=== PATIENT | male | born 1955 | race Caucasian/White ===

== ENCOUNTER 2025-09-07 18:06 | Emergency (ER) | payer MEDICARE, SELFPAY ==
--- NOTE | 2025-09-07 18:08 | ED_ITS ---
<Statement entered by Zulay Arriola DO - 09/07/25 19:56> I was consulted by the HUA, and we discussed the complexity of problems being addressed. I approve the treatment and management plan for this patient's care in the emergency department, thus performing a substantial portion of the medical decision making. Zulay Arriola DO Discharge Plan Disposition Patient Disposition: Home, Self-Care Condition: Good Prescriptions Prescriptions: No Action atorvastatin 40 mg tablet 40 mg PO DAILY albuterol sulfate 90 mcg/actuation HFA aerosol inhaler 2 inh inhalation QID PRN metronidazole 0.75 % gel topical doxycycline hyclate 20 mg tablet 20 mg PO DAILY fluticasone propionate [Allergy Relief (fluticasone)] 50 mcg/actuation spray,suspension 1 spray intranasal BID PRN Rx Instructions: administer into each nostril Zyrtec 10 mg capsule 10 mg PO DAILY PRN prednisone 10 mg tablet 10 mg PO DIRECTED Qty: 32 0RF Rx Instructions: see taper instructions: 4 tabs po qam x 5 days; 3 tabs po qam x 2 days; 2 tabs po qam x 2 days; 1 tab po qam x 2 days; then stop Referrals Follow up/Referrals: Yeyo Chisholm MD [Primary Care Provider, Medical] - See instructions Activity Restrictions/Add. Instructions Additional Instructions/Restrictions: You were evaluated on an emergency basis. It is very important that you follow- up with your primary care provider and any specialist who we discussed within the next 2 days in order to better assess your health more comprehensively. For example, incidental findings on imaging or laboratory results that were performed today may be discovered, which do not require immediate medical care, but may impact your health in the future. If your symptoms worsen or persist, please return to the emergency department immediately for reassessment. Take all medications as prescribed. In queue for allowing me to participate in your health care, and I hope you feel better soon. Clinical Impressions Clinical Impression: Foreign body in esophagus Instructions Patient Instructions: DI for Foreign Body, Swallowed in Adults Print Language Print Language: Yi Discharge ED Provider: Zulay Arriola General Adult HPI General Chief complaint: Skin/Abscess/Foreign Body Stated complaint: vomiting Time Seen by Provider: 09/07/25 18:08 History of Present Illness HPI narrative: 70-year-old male presents the emergency department with complaints of sudden onset of feeling like he had something stuck in his chest after eating chicken. He reports he does have a history of a hiatal hernia however reports when he was last scoped a year ago they reported the hernia was small and did not need any surgical interventions. Patient reports he has had a food bolus in the past. Patient states he has had repeated gagging and vomiting since this sensation started. Related Data Home Medications ?Medication ?Instructions ?Recorded ?Confirmed albuterol sulfate 90 mcg/actuation 2 inh inhalation QI D PRN 05/17/24 05/17/25 aerosol inhaler atorvastatin 40 mg tablet 40 mg PO DAILY 05/17/2404/22 cetirizine 10 mg capsule (Zyrtec) 10 mg PO DAILY PRN 0 05/17/24 05/17/25 doxycycline hyclate 20 mg tablet 20 mg PO DAILY 05/17/25 fluticasone propionate 50 1 spray intranasal BID PRN 0 05/17/24 05/17/25 mcg/actuation nasal spray,suspension (Allergy Relief (fluticasone)) metronidazole 0.75 % topical gel topical 05/17/2404/22 Previous Rx's ?Medication ?Instructions ?Recorded prednisone 10 mg tablet 10 mg PO DIRECTED #32 tab s 05/17/25 Allergies Allergy/AdvReac Type Severity Reaction Status Date / Time dexamethasone (From Decadron) AdvReac Other Verified 05/17/25 14:10 [facility] Disclaimer: The information contained in this section may have been updated after the patient was seen, as this information can be updated by other users. Social History Smoking Status: Never smoker alcohol intake: never current occupational status: employed Travel in the last 8 weeks?: Inside the [place] Have you lived/traveled outside US in past 30 days?: No Contact w/someone who lives/traveled outside US past 30 days?: No Exposure to someone with infectious disease in past 14 days?: No Do you have a fever (greater than 100.4 F or 38 C)?: No Have you tested positive for COVID-19?: No Exposed to someone with COVID-19 in past 14 days?: No Do you have a sore throat?: No Do you have a cough?: No Do you have any weakness?: No Do you have any diarrhea?: No Are you experiencing any unusual bleeding?: No Do you have any muscle aches/pain?: No Do you have any abdominal pain?: No Are you experiencing loss of taste or smell?: No Other Medical History Have you received the Pneumonia Vaccine: No ROS Obtained: Yes other Gastrointestinal Gastrointestingal: Reports vomiting and other (Foreign body sensation) Physical Exam Narrative Physical exam: General: Awake, aware, in no acute distress HEENT: Normocephalic, no evidence of trauma CV: RRR, no murmurs, rubs, or gallops Pulm: CTA bilaterally with no rhonchi, rales, wheezes ABD: Nontender, no swelling, guarding, or rebound tenderness Psych, appropriate mood and affect General General appearance: alert Respiratory Respiratory exam: Present normal lung sounds bilaterally Cardiovascular Cardiovascular exam: Present regular rate Neurological Exam Neurological exam: Present alert Medical Decision Making Medical Records Screening: Per USPSTF and CDC recommendations, given the prevalence of disease in our region, it is our hospital?s policy to screen for HIV and viral Hepatitis for all patients aged 18 and over and those with ongoing risk factors. Rell Inquiry Pt receiving controlled substance: No Vital Signs: 09/07/25 18:15 Temperature 98.5 F Temperature Source Temporal Artery Scan Pulse Rate [Right] 76 Respiratory Rate 18 Blood Pressure [Right Arm] 164/124 H Blood Pressure Mean [Right Arm] 137 Blood Pressure Source [Right Arm] Automatic Cuff Blood Pressure Position [Right Arm] Sitting 02 Sat by Pulse Oximetry 100 Oxygen Delivery Method Room Air Orders (Tests/Meds): ED MEDICATIONS Discontinued Medications Generic Name Dose Route Start Last Admin Trade Name Abimael PRN Reason Stop Dose Admin Ondansetron HCl 4 mg 09/07/25 18:24 09/07/25 18:28 Ondansetron 4mg/2ml Vial IV 09/07/25 18:25 4 mg ONCE ONE Administration Medical Decision Narrative: Initial impression of presenting illness: 70-year-old male presents the emergency department with complaints of a foreign body sensation after eating chicken for dinner tonight. Patient reports he suddenly had a pain in his epigastric/ lower chest area. He reports that he has had this episode in the past with a food bolus. He states he does have a history of hiatal hernia however when he had scope done last year he was told by GI that it was small and did not need any surgical intervention. Patient states he has had several episodes of vomiting since feeling this sensation. He states he is able to swallow secretions but still feels that something is stuck Differential diagnosis includes but is not limited to: Food bolus, gastritis, esophagitis, hiatal hernia Patient arrives hemodynamically stable, afebrile, without respiratory distress with vital signs interpreted by myself. Initial physical exam unremarkable. Patient is speaking in clear complete sentences. No evidence of respiratory distress. Abdomen soft nontender with normoactive bowel sounds. Patient did have an episode of gagging and spitting up phlegm while was in the room. As I had patient set up so I did listen to breath sounds he states that he felt something move within the area that he is complaining of discomfort and thinks that the food bolus might of passed. Initial diagnostic plan: Zofran for nausea, fluid challenge with a carbonated beverage Interventions in the ED: Patient was given Zofran for nausea. He was also given a carbonated beverage for fluid challenge. Patient was made aware of the results and the findings, upon reevaluation patient has remained stable throughout stay, symptoms have resolved. Upon reevaluation patient has been able to tolerate his drink without difficulty. Patient states he is feeling much better and is no longer having a foreign body sensation. Disposition: Advised patient that it appears his food bolus has passed without difficulty. I recommended he speak with his primary care provider as well as his GI provider at the [facility] for further recommendations or evaluations for this food bolus. Instructed him to return to the emergency department any new or worsening symptoms. Patient is agreeable to plan of care. Patient made aware of findings and had a detailed discussion with symptomatic care and return precautions, patient voiced understanding. Critical Care Critical Care Time Critical Care Time: No
[2025-09-07 18:15] VITALS: BP 164/124; PULSE 76; RESP 18; TEMP 36.9; O2SAT 100; BMI 33.5
--- OUTSIDE RECORDS SUMMARY | 2025-09-07 18:20 | XMS_ITS ---
Author Organization [facility] Address [address] [place] [address] Care Team Providers Care Mixer Machine Feeder Name Role Phone Marcio Jiménez MD Primary Care Provider [phone] Romelia Avalos LPN Unavailable Unavailabl e Annual Wellness Status:Active (Active) Program category:Care Coordination Start date:09/04/2025 Enrollment date:09/04/2025 Enrollment reason:Identified using claims or encounter data Case Team Name Relationship Phone Romelia Avalos LPN(Responsible Staff) Licensed Practical Nurse Continued Care and Services Coordination
--- OUTSIDE RECORDS SUMMARY | 2025-09-07 18:20 | XMS_ITS | Encounter Summary ---
Author Organization Healthcare Address [address] [place] [address] Care Team Providers Care Cloth Bin Packer Name Role Phone Marcio Jiménez MD Primary Care Provider [phone] Romelia Avalos LPN Unavailable Unavailabl e Reason for Visit * Reason Comments AWV Encounter Details Date Type Department Care Team (Late st Contact Info) Description 09/04/2025 Patient Outreach POP[facility] [address], [address] [place] [address] Romelia Avalos, ALISHA VALUE-BASED TRANSFORMATION PROGRAM None AWV Social History Tobacco Use Types Packs/Day Years Used Date Smoking Tobacco: Never Smokeless Tobacco: Never Alcohol Use Standard Drinks/Week Comments Yes 0 (1 standard drink = 0.6 oz pure alcohol) Alcoholic Drinks/day: Never Drank Alcohol AUDIT-C Answer Date Recorded Q1: How often do you have a drink containing alcohol? Never 08/08/2024 Q2: How many drinks containi ng alcohol do you have on a typical day when you are drinking? Patient does not drink Q3: How often do you have si x or more drinks on one occasion? Never 08/08/2024 PHQ-2 Answer Date Recorded Patient Health Questionnaire-2 Score 2 08/15/2024 PHQ-9 Answer Date Recorded Patient Health Questionnaire-9 Score 3 08/15/2024 Humiliation, Afraid, Rape, and Kick questionnair e Answer Date Recorded Within the last year, have y ou been afraid of your partner or ex-partner? No 09/04/2025 Within the last year, have y ou been humiliated or emotionally abused in other ways by your partner or ex-partner? No Within the last year, have y ou been kicked, hit, slapped, or otherwise physically hurt by your partner or ex-partner? No 09/04/2025 Within the last year, have y ou been raped or forced to have any kind of sexual activity by your partner or ex-partner? No 09/04/2025 Social Connection and Isolation Panel Answer Date Recorded In a typical week, how many times do you talk on the phone with family, friends, or neighbors? More than three times a week 09/04/2025 How often do you get togethe r with friends or relatives? More than three times a week 09/04/2025 How often do you attend [facility] or confucianist services? 1 to 4 times per year 09/04/2025 Do you belong to any clubs o r organizations such as latter day groups, unions, fraternal or athletic groups, or school groups? Yes 09/04/2025 How often do you attend meet ings of the clubs or organizations you belong to? More than 4 times per year 09/04/2025 Are you , , di vorced, , never , or living with a partner? Never 09/04/2025 AUDIT-C Answer Date Recorded Q1: How often do you have a drink containing alc ohol? Monthly or less 09/04/2025 Q2: How many drinks containi ng alcohol do you have on a typical day when you are drinking? 1 or 2 09/04/2025 Q3: How often do you have si x or more drinks on one occasion? Never 09/04/2025 [facility] Occupational Stress Questionnaire Answer Date Recorded Do you feel stress - tense, restless, nervous, or anxious, or unable to sleep at night because your mind is troubled all the time - these days? Not at all 09/04/2025 Exercise Vital Sign Answer Date Recorde d On average, how many days pe r week do you engage in moderate to strenuous exercise (like a brisk walk)? 0 days 09/04/2025 On average, how many minutes do you engage in exercise at this level? 0 min 09/04/2025 Hunger Vital Sign Answer Date Recorded Within the past 12 months, y ou worried that your food would run out before you got the money to buy more. Never true 09/04/20 25 Within the past 12 months, t he food you bought just didn't last and you didn't have money to get more. Never true 09/04/2025 PRAPARE - Transportation Answer Date Re corded In the past 12 months, has l ack of transportation kept you from medical appointments or from getting medications? No 08/21 In the past 12 months, has l ack of transportation kept you from meetings, work, or from getting things needed for daily living? No 09/04/2025 Housing Stability Vital Sign Answer Andre e Recorded In the last 12 months, was t here a time when you were not able to pay the mortgage or rent on time? No 09/04/2025 In the past 12 months, how m any times have you moved where you were living? 0 09/04/2025 At any time in the past 12 m [facility], were you homeless or living in a intermediate (including now)? No 09/04/2025 [facility] Utilities Answer Date Recorded In the past 12 months has th e electric, gas, oil, or water company threatened to shut off services in your home? No 09/04/2025 PHQ-2A Answer Date Recorded Patient Health Questionnaire-2 Score 0 08/10/2023 Sex and Gender Information Value Date Recorded Sex Assigned at Male 03/28/2023 8:15 AM EDT Legal Sex Male 7:56 PM EDT Gender Identity Male 03/28/2023 8:15 AM EDT Sexual Orientation Not on file documented as of this encounter Functional Status * AUDIT-C Score Answer Date of Assessment Author 1 09/04/2025 2:54 PM Jeanne Gallardo LPN * Question Answer Date of Assessment Author Q1: How often do you have a drink containing alcohol? Monthly or less 09/04/2025 2:54 PM Romelia Gallardo LPN Q2: How many drinks containing alcohol do you have on a typical day when you are drinking? 1 or 2 09/04/2025 2:54 PM Av Gallardo LPN Q3: How often do you have six or more drinks on one occasion? Never 09/04/2025 2:54 PM EST Romelia Avalos LPN documented as of this encounter Miscellaneous Notes * Progress Notes - Romelia Avalos LPN - 09/04/2025 2:42 PM EST 09/04/2025 AWV Call # 1 Patient Reached: Y HRA Completed: Y 6-Item Cognitive Screen Completed: Y Care Gaps Discussed: Annual Wellness Visit (AWV) Outcome: Discussed the importance of an annual wellness visit, reviewed medications, updated the SDOH assessment, updated learning needs, updated STEADI fall risk, and reminded the patient of the date and time of the upcoming appointment. Social Drivers of Health with Concerns Physical Activity: Inactive (09/04/2025) Exercise Vital Sign Days of Exercise per Week: 0 days Minutes of Exercise per Session: 0 min Financial Resource Strain: Not on file documented in this encounter Plan of Treatment Upcoming Encounters Date Type Department Care Team (Late st Contact Info) Description 09/11/2025 2:50 PM EST Office Visit [facility] [address], [address] [place] [address] Marcio Jiménez MD [address] [place] [address] documented as of this encounter Visit Diagnoses Not on filedocumented in this encounter Additional Health Concerns Assessment Noted Time PHQ-9 Depression Total Score: 3 08/15/20 24 2:16 PM EST A fall risk assessment has been complete d for the patient 09/04/2025 2:54 PM EST A Body Mass Index follow-up plan has been documented for the patient 10/17/2024 1:38 PM EST documented as of this encounter Care Teams Cloth Bin Packer Relationship Specialty Start Date End Date Marcio Jiménez MD [address] [place] [address] PCP - General 02/01/21 Planck, Romelia N, [employer] VALUE-BASED TRANSFORMATION PROGRAM None Licensed Practical Nurse 09/04/25 documented as of this encounter
--- OUTSIDE RECORDS SUMMARY | 2025-09-07 18:20 | XMS_ITS | Encounter Summary ---
Author Organization Healthcare Address [address] [place] [address] Care Team Providers Care Transaction Advisory Services Manager Name Role Phone Marcio Jiménez MD Primary Care Provider [phone] Lizzie Smith VARNISH MIXER Unavailable Unavailabl e Romelia Avalos VARNISH MIXER Unavailable Unavailabl e Encounter Details Date Type Department Care Team (Latest Contact Info) Description 08/24/2024 Lab Requisition [facility] [address] [place] [address] Varun Wilkes MD [address] [place] [address] Encounter for screening for upper gastrointestinal disorder Social History Tobacco Use Types Packs/Day Years Used Date Smoking Tobacco: Never Smokeless Tobacco: Never Alcohol Use Standard Drinks/Week Comments No 0 (1 standard drink = 0.6 oz pure alcohol) Alcoholic Drinks/day: Never Drank Alcohol Humiliation, Afraid, Rape, and Kick questionnair e Answer Date Recorded Within the last year, have y ou been afraid of your partner or ex-partner? No 08/08/2024 Within the last year, have y ou been humiliated or emotionally abused in other ways by your partner or ex-partner? No Within the last year, have y ou been kicked, hit, slapped, or otherwise physically hurt by your partner or ex-partner? No 08/08/2024 Within the last year, have y ou been raped or forced to have any kind of sexual activity by your partner or ex-partner? No 08/08/2024 AUDIT-C Answer Date Recorded Q1: How often [...] Recorded Patient Health Questionnaire-2 Score 2 08/15/2024 Exercise Vital Sign Answer Date Recorde d On average, how many days pe r week do you engage in moderate to strenuous exercise (like a brisk walk)? 0 days 08/08/2024 On average, how many minutes do you engage in exercise at this level? 0 min 08/08/2024 Hunger Vital Sign Answer Date Recorded Within the past 12 months, y ou worried that your food would run out before you got the money to buy more. Never true 08/08/20 24 Within the past 12 months, t he food you bought just didn't last and you didn't have money to get more. Never true 08/08/2024 PRAPARE - Transportation Answer Date Re corded In the past 12 months, has l ack of transportation kept you from medical appointments or from getting medications? No 07/22 In the past 12 months, has l ack of transportation kept you from meetings, work, or from getting things needed for daily living? No 08/08/2024 PHQ-9 Answer Date Recorded Patient Health Questionnaire-9 Score 3 08/15/2024 Housing Stability Vital Sign Answer Andre e Recorded In the last 12 months, was t here a time when you were not able to pay the mortgage or rent on time? No 08/08/2024 In the past 12 months, how m any times have you moved where you were living? 1 08/08/2024 At any time in the past 12 m [facility], were you homeless or living in a long-term (including now)? No 08/08/2024 Utilities Answer Date Recorded In the past 12 months has th e electric, gas, oil, or water company threatened to shut off services in your home? No 08/08/2024 PHQ-2A Answer Date Recorded Patient Health Questionnaire-2 Score 0 08/10/2023 Sex and Gender Information Value Date Recorded Sex Assigned at Male 03/28/2023 8:15 AM EDT Legal Sex Male 7:56 PM EDT Gender Identity Male 03/28/2023 8:15 AM EDT Sexual Orientation Not on file documented as of this encounter Plan of Treatment Upcoming Encounters Date Type Department Care Team (Late st Contact Info) Description 09/11/2025 2:50 PM EST Office Visit [facility] [address] [place] [address] Marcio Jiménez MD [address] [place] [address] documented as of this encounter Procedures Procedure Name Priority Date/Time Associated Diagnosis Comments SURGICAL PATHOLOGY EXAM Routine 08/23/2024 Encounter for screening for upper gastrointestinal disorder documented in this encounter Results * Surgical Pathology Exam (08/23/2024) Case Report Surgical Pathology Case: [id number] Authorizing Provider: Varun Wilkes MD Collected: 08/23/2024 Ordering Location: [facility] Received: 08/24/2024 1032 Pathologist: Jered Colunga MD Specimens: A) - Gastric, gastric biopsy B) - Esophagus, distal esophagus biopsy C) - Esophagus, mid esophagus biopsy 08/30/2024 5:47 PM EST [facility] Final Diagnosis A. STOMACH, BIOPSY: - REACTIVE GASTROPATHIC CHANGES - NO EVIDENCE OF HELICOBACTER-LIKE ORGANISMS ON ROUTINE STAIN B. ESOPHAGUS, DISTAL, BIOPSY: - SQUAMOUS MUCOSA WITH FOCAL MILD EOSINOPHILIA (UP TO 20 EOS/HPF) (SEE COMMENT) - NO EVIDENCE OF SIGNIFICANT HYPERPLASIA C. ESOPHAGUS, MID, BIOPSY: - SQUAMOUS MUCOSA WITH NO PATHOLOGIC ABNORMALITY 08/30/2024 5:47 PM EST [facility] at 1747 EST Comment Though not entirely specific, the distribution and quality of the esophageal histologic findings in this series are more in keeping with reflux esophagitis, and are not overly suggestive of an allergic etiology. 08/30/2024 5:47 PM EST [facility] Clinical Information Encounter for screening for upper gastrointestinal disorder Dysphagia 08/30/2024 5:47 PM EST [facility] Gross Description A. GASTRIC BIOPSY Received in formalin labeled g astric biopsy are 6 kapadia-brown soft tissues measuring 0.2-0.3 cm. Entirely submitted in cassette A1. Cold Time: 0 Hollie T Dutton B. DISTAL ESOPHAGUS BIOPSY Received in formalin labeled d istal esophagus biopsy are 3 white-kapadia soft tissues measuring 0.2 cm each. Entirely submitted in cassette B1. Cold Time: 0 Hollie T Dutton C. MID ESOPHAGUS BIOPSY Received in formalin labeled m id esophagus biopsy are 3 white-kapadia soft tissues measuring 0.1-0.2 cm. Entirely submitted in cassette C1. Cold Time: 0 Hollie T Dutton 08/30/2024 5:47 PM EST [facility] Note: A resident was involved in the service. I attest I examined the relevant preparations for the specimens and confirmed the diagnosis or interpretation. 08/30/2024 5:47 PM EST [facility] Tissue Esophageal structure / Unknown 08/23/2024 08/24/2024 10:32 AM EST Tissue specimen (specimen) Esophageal structure / Unknown 08/23/2024 08/24/2024 10:32 AM EST Tissue specimen (specimen) Esophageal structure / Unknown 08/23/2024 08/24/2024 10:32 AM EST us Varun Wilkes MD LAB PATHOLOGY ORDERABLES Final Result Performing Organization Address City/State/[facility] Co de Phone Number [facility] [address] [place] [address] documented in this encounter Visit Diagnoses Diagnosis Encounter for screening for upper gastrointestinal disorder Mild intermittent asthma without complication documented in this encounter Additional Health Concerns Assessment Noted Time PHQ-9 Depression Total Score: 3 08/15/20 2:16 PM EST A fall risk assessment has been complete d for the patient 08/15/2024 2:16 PM EST A Body Mass Index follow-up plan has been documented for the patient 08/15/2024 6:10 PM EST documented as of this encounter Care Teams Transaction Advisory Services Manager Relationship Specialty Start Date End Date Marcio Jiménez MD [address] [facility] [address] [place] [address] PCP - General 02/01/21 Lizzie Smith LPN [employer] [address] None Licensed Practical Nurse 08/08/24 02/04/25 Romelia Avalos LPN VALUE-BASED TRANSFORMATION PROGRAM None Licensed Practical Nurse 09/04/25 documented as of this encounter
--- OUTSIDE RECORDS SUMMARY | 2025-09-07 18:20 | XMS_ITS | Clinical Summary ---
Author Organization Healthcare Address [address] [place] [address] Care Team Providers Care Title Coordinator Name Role Phone Marcio Jiménez MD Primary Care Provider [phone] Romelia Avalos ENGINEERING DOCUMENTATION SPECIALIST Unavailable Unavailabl e Allergies Active Allergy Reactions Criticality Noted Date Comments Dexamethasone Other - please docum ent in the comment field Low 06/06/2013 Feeling very excited and made eyes cold Medications * This document contains information received from the source organization and may not represent a complete record from that organization. ketoconazole (NIZOral) 2 % shampoo Apply 1 Application topically 2 (two) times a week. 03/21/20 21 Active metroNIDAZOLE (Metrocream) 0.75 % cream Apply 1 Application topically every night. 03/23/20 23 Active doxycycline (Periostat) 20 MG tablet 1 tablet (20 mg) 2 (two) times a day. For rosacea 03/21/20 23 Active melatonin 3 MG tablet Take 1 tablet (3 mg) by mouth every night. Active fluticasone (Flonase) 50 MCG/ACT nasal sprayIndications:A llergic rhinitis, unspecified seasonality, unspecified trigger Administer 2 sprays into each nostril 1 (one) time each day. 48 g 3 08/15/20 24 Active cetirizine (ZyrTEC) 10 MG tabletIndications: Allergic rhinitis, unspecified seasonality, unspecified trigger Take 1 tablet (10 mg) by mouth every night. 90 tablet 3 08/15/20 24 Active atorvastatin (Lipitor) 40 MG tabletIndications: Hyperlipidemia, unspecified hyperlipidemia type Take 1 tablet (40 mg) by mouth 1 (one) time each day. 90 tablet 3 08/15/20 Active ibuprofen 200 MG tablet Take 1 tablet (200 mg) by mouth every 6 (six) hours if needed for mild pain. Active albuterol 108 (90 Base) MCG/ACT inhalerIndications :Mild intermittent asthma without complication Inhale 2 puffs 4 times a day as needed for wheezing or shortness of breath. 18 g 2 07/03/20 Active Active Problems Problem Noted Date Diagnosed Date Esophageal dysphagia 09/13/2024 Overview (09/13/2024): Began in late 2023. Aug 2024 - EGD showed gastritis as likely cause. No rings, minimal eosinophils on biopsies. Assessment & Plan (10/17/2024 1:44 PM EST): Stable. Not bohtersome enough to take PPI daily. Will manage with eating habits (eat lora slowly and chew). Can try PPI without visit if worsens. Rosacea 08/15/2024 Overview (08/15/2024): Sees dermatology. On daily doxy, metrogel. History of inguinal hernia 04/06/2023 Overview (08/10/2023): Working in yard in February 2023. [place] swelling develop afterwards. Went to ER in early March and diagnosed with hernia, was referred to surgery. Is wearing and using a hernia belt which helps keeping swelling from and happening. Apr 2023 - had laparoscopic repair with mesh Assessment & Plan (08/10/2023 6:52 PM EST): Occasional pains but improving overall. Assessment & Plan (04/22/2023 5:58 PM EDT): Discussed and reviewed options. Advised on what to ask surgeon. Seeing surgery next week. History of prediabetes 07/30/2022 Overview (08/15/2024): A1c was 5.7 in 2015 went down then back to prediabetes in 2021. A1c 5.3% in January 2022. A1c 5.0% in Jul 2023. Assessment & Plan (08/15/2024 6:03 PM EST): Will check with labs. Assessment & Plan (08/10/2023 6:51 PM EST): Will check A1c with labs. Assessment & Plan (07/30/2022 6:53 PM EST): Improved. Healthcare maintenance 06/10/2021 Overview (09/12/2024): Retired. Unmarried. No children. CRC - Aug 2024 cologuard negative; repeat in 3 years AAA - not indicated Lung cancer - not indicated PSA - <1 in 2023 ASCVD - on statin Has a will and healthcare POA (brother first, then niece in [facility]) Assessment & Plan (08/15/2024 6:04 PM EST): UTD on eye doctor and dentist. Will pursue cologuard after discussing options. Assessment & Plan (08/10/2023 3:22 PM EST): Doing FOBT through his insurance company. Assessment & Plan (04/22/2023 5:59 PM EDT): Reviewed preventive services and when they are due. Will do wellness visit with labs in July. External hemorrhoids 06/10/2021 Overview (10/17/2024): Prior issues. Obesity 06/04/2020 Assessment & Plan (07/30/2022 6:54 PM EST): Obesity is unchanged. Discussed the patient's BMI. The BMI is above average. The patient received The patient received dietary education because they have an above normal BMI. and The patient received exercise education because they have an above normal BMI. because they have an above normal BMI.. Diet interventions: moderate (500 kCal/d) deficit diet. Regular aerobic exercise program discussed. Primary osteoarthritis of knee 03/23/2019 Overview (08/15/2024): 2019 - L knee arthritis noted on x-ray. Intertrigo 02/03/2019 Asthma 05/28/2017 Overview (06/10/2021): Had as child, has not used inhalers or had issues for 30+ years. Had an episode in 2017, went to urgent care and was diagnosed with asthma. Palpitations 06/11/2016 Overview (06/10/2021): 30 years ago had what sounded like a halter monitor, was told that everything was normal. Was told he has a heart murmur as a teenager. No associated pain or discomfort. He saw a telephone lines repairer in 2015 told him he had benign PACs. Hyperlipidemia 08/24/2013 Overview (06/10/2021): Taking statin with no issues. Lab results from employee screening 2018 (121 / 39 / 56 / 133). Assessment & Plan (08/15/2024 6:03 PM EST): Lipid abnormalities are will check with labs . Pharmacotherapy as ordered. Lipids will be reassessed in 1 year. Allergic rhinitis 06/06/2013 Overview (08/10/2023): Uses flonase and antihistamine. Adds saline nasal spray when gets irritated. Assessment & Plan (08/15/2024 6:02 PM EST): No current infection. Discussed adding large volume nasal rinses when symptoms flare. Assessment & Plan (08/10/2023 6:50 PM EST): No sinus infection today, likely rhinitis flare. Encounters Date Type Department Care Team Description 09/04/2025 Patient Outreach [facility] [address], [address] [place] [address] Romelia Avalos LPN AWV 06/29/2025 [facility] [address], [address] [place] [address] Marcio Jiménez MD Mild intermittent asthma without complication 06/14/2025 Travel 06/13/2025 6:00 PM EDT Immunization [facility] Pharmacist Care Team [address] [place] [address] Need for COVID-19 vaccine (Primary Dx); Flu vaccine need from Last 3 Months Immunizations Immunization Administration Dates Next Due Hep A, Adult 02/03/2019,08/03/2018 Influenza Vaccine, Quadrival ent, Adjuvanted 06/10/2021 Influenza, High-dose, Split Virus, Trivalent, Injectable, preservative free 06/13/2025,06/13/2024 Influenza, Unspecified 06/10/2021,2008,07/05/2008,07/21 Influenza, high-dose, quadrivalent 06/03/2023, Influenza, injectable, quadr ivalent, preservative free 06/02/2019,05/31/2018,06/23/2016,06/28 Influenza, seasonal, injectable 06/09/20 22,06/10/2021,07/05/2020,05/28,07/05/2013 Influenza, seasonal, injecta ble, preservative free 07/30/2015 Pfizer Covid-19 Vaccine 12y+ , Graham Protein, PF, Jonas-Sucrose 06/13/2025,06/13/2024,06/19/2023 Pfizer-ComparaOnlineNTech COVID-19 Biv alent (Barlow Cap) 12+ years (jonas-sucrose) 07/01/2022 Pfizer-ComparaOnlineNTech COVID-19 Vac cine (Purple Cap) 12+ 07/10/2021,12/25/2020,11/29/2020 Pneumococcal 20-filippo Conj Vaccine 08/10/2023 Pneumococcal Conjugate PCV 13 05/31/2018 Pneumococcal Polysaccharide PPV23 05/28/2017 Rsvpref, Recombinant, Protei n Subunit, Adjuvent 08/25/2023 Tdap 07/05/2020,08/03/2009 Zoster, Recombinant 06/04/2020,06/02/2019 Zoster, live 09/05/2014 Family History Medical History Relation Name Comments Stroke Father Diabetes Other 1 Stroke Other 2 Cousin Cancer Sister Waldenstr m macroglobulinemia Malig Hyperthermia Neg Hx Relation Name Status Comments Father Other 1 [place]str m macroglobulinemia Other 2 Cousin Waldenstr m macroglobulinemia Sister Social History Tobacco Use Types Packs/Day Years Used Date Smoking Tobacco: Never Smokeless Tobacco: Never Tobacco Cessation:Counseling Given: Not Answered Alcohol Use Standard Drinks/Week Comments Yes 0 [...] week 09/04/2025 How often do you attend chur or presybeterian services? 1 to 4 times per year 09/04/2025 Do you belong to any clubs o r organizations such as hindu groups, unions, fraternal or athletic groups, or [...] more drinks on one occasion? Never 09/04/2025 [facility] Occupat ional [facility] - Occupational Stress Questionnaire Answer Date [...] any time in the past 12 m [facility], were you homeless or living in a prison (including now)? No 09/04/2025 [facility] Utilities Answer Date Recorded In the past 12 months has [employer], gas, oil, or water company threatened to shut off services in your home? No 09/04/2025 PHQ-2A Answer Date Recorded Patient Health Questionnaire-2 Score 0 08/10/2023 Sex and Gender Information Value Date Recorded Sex Assigned at Male 03/28/2023 8:15 AM EDT Legal Sex Male 7:56 PM EDT Gender Identity Male 03/28/2023 8:15 AM EDT Sexual Orientation Not on file Last Filed Vital Signs Vital Sign Reading Time Taken Comments Blood Pressure 114/75 10/17/2024 12:58 PM EST Pulse 52 10/17/2024 12:58 PM EST Temperature 37.2 C (99 F) 10/17/2024 12:58 PM EST Respiratory Rate 19 05/11/2023 3:00 PM EDT Oxygen Saturation 96% 10/17/2024 12:58 PM EST Inhaled Oxygen Concentration - - Weight 118 kg (261 lb 0.4 oz) 10/17/2024 12:58 P M EST Height 190.5 cm (6' 3 ) 10/17/2024 12:58 PM EST Body Mass Index 32.63 10/17/2024 12:58 PM EST Plan of Treatment Upcoming Encounters Date Type Department Care Team (Late st Contact Info) Description 09/11/2025 2:50 PM EST Office Visit [facility] Medicine [address], [address] [place] [address] Marcio Jiménez MD [address] [place] [address] Health Maintenance Due Date Last Done Comments [facility]-Infant/Child/Adol SDOH Screenings [address] Colonography 1998 Sigmoidoscopy 1998 Colonoscopy 06/02/2024 06/02/2014 FIT 09/10/2024 09/10/2023, 09/10/2023 FOBT 09/10/2024 09/10/2023 [facility]-Depression Screening 08/15/2025 08/15/2024, 07/23 [facility]-Medicare Annual Wellness (AWV) 08/15/2025 08/15/2024, 08/10/2023 [id number] Vaccine ( season) 2025 06/13/2025, 06/13/2024, 06/19/2023, Additional history exists [facility]- SDOH Screenings 03/05/2026 [facility]-Adult SDOH Screenings 03/05/2026 09/04/2025 FIT-DNA 09/01/2027 09/01/2024 [facility]-Colorectal Cancer Screening 09/01/2027 [facility]-DTaP,Tdap,and Td Vaccines (3 - Td or Tdap) 07/05/2030 07/05/2020, 08/03/2009 [facility]-Hepatitis C Screening Completed 03/15/2014 [facility]-Hepatitis A Vaccines Aged Out 02/03/2019, 07/22 No longer eligible based on patient's age to complete this topic [facility]-Zoster Vaccines Completed 06/04/2020, 06/02/2019, 09/05/2014 [facility]-Pneumococcal Vaccine: 50+ Years Completed 08/10/2023, 05/31/2018, 05/28/2017 [facility]-RSV Vaccine: 60+ Years or Completed 08/25/2023 [facility]-Diabetes: Hemoglobin A1C Discontinued 08/15/2024, 08/10/2023, 01/28/2022, Additional history exists [facility]-Obesity Intervention Completed 025, 08/15/2024, 08/15/2024, Additional history exists [facility]-Influenza Vaccine Completed 06/13/2025 , 06/13/2024, 06/03/2023, Additional history exists HPV Vaccines (No Doses Required) Completed [facility]-HIB Vaccines Aged Out No longer e ligible based on patient's age to complete this topic [facility]-IPV Vaccines Aged Out No longer e ligible based on patient's age to complete this topic [facility]-Rotavirus Vaccines Aged Out No lo nger eligible based on patient's age to complete this topic Medical Devices Implanted Type Area Ratchet Setter Device Identifier Shelf Expiration Date Model / Serial / Lot Mesh 3d Max 4x6 Large Left - [id number] Implanted:Qty : 1 on 05/11/2023 by Harley Jett MD at [facility] Mesh Left: Inguinal [id number] 01/17/2028 [id number] / / [id number] Mesh 3d Max 4x6 Large Right - [id number] Implanted:Qty : 1 on 05/11/2023 by Harley Jett MD at [facility] Mesh Right: Inguinal [id number] 11/18/2027 [id number] / / [id number] Capsure Fix 30 - [id number] Implanted: by Harley Jett MD at [facility] (Quantity not on file) [id number] / / Procedures Procedure Name Priority Date/Time Associated Diagnosis Comments LAB COLOGUARD COLON CANCER SCREEN Routine 09/01/2024 1:30 PM EST Encounter for colorectal cancer screening HEMOGLOBIN A1C Routine 08/15/2024 3:28 PM EST History of prediabetes FIT EXTERNAL RESULT 09/10/2023 COLONOSCOPY 06/02/2014 HEPATITIS C ANTIBODY W/REFLEX TO HCV QUANT PCR Routine 03/15/2014 3:51 PM EDT from Last 3 Months or Most Recently Relevant to Health Maintenance Results * Cologuard?? colon cancer screening (09/01/2024 1:30 PM EST) Cologuard Negative Negative 09/07/2024 8:36 PM EST [employer] (CLIA #:[id number]) Comment: NEGATIVE TEST RESULT. A negative Cologuard result indicates a low likelihood that a colorectal cancer (CRC) or advanced adenoma (adenomatous polyps with more advanced pre-malignant features) is present. The chance that a person with a negative Cologuard test has a colorectal cancer is less than 1 in 1500 (negative predictive value >99.9%) or has an advanced adenoma is less than 5.3% (negative predictive value 94.7%). These data are based on a prospective cross-sectional study of 10,000 individuals at average risk for colorectal cancer who were screened with both Cologuard and colonoscopy. (Alexis Garcia al, N Engl J Med 2014;370(14):8529-7892) The normal value (reference range) for this assay is negative. COLOGUARD RE-SCREENING RECOMMENDATION: Periodic colorectal cancer screening is an important part of preventive healthcare for asymptomatic individuals at average risk for colorectal cancer. Following a negative Cologuard result, the [place] Cancer Society and U.S. Multi-Society Task Force screening guidelines recommend a Cologuard re-screening interval of 3 years. References: [place] [employer] Society Guideline for Colorectal Cancer Screening: https://www.cancer.org/cancer/cvwlv-iqykqy-wrmdwp/anjcfibbc-hqoebfujj-uidacdn/ac s-rec ommendations.html.; Luisito DK, Connor TEJADA, Amrita StarrK, Colorectal Cancer Screening: Recommendations for Physicians and Patients from the U.S. Multi-Society Task Force on Colorectal Cancer Screening , Am J Gastroenterology 2017; 112:3760-4861. TEST DESCRIPTION: Composite algorithmic analysis of stool DNA-biomarkers with hemoglobin immunoassay. Quantitative values of individual biomarkers are not reportable and are not associated with individual biomarker result reference ranges. Cologuard is intended for colorectal cancer screening of adults of either sex, 45 years or older, who are at average-risk for colorectal cancer (CRC). Cologuard has been approved for use by the U.S. FDA. The performance of Cologuard was established in a cross sectional study of average-risk adults aged 50-84. Cologuard performance in patients ages 45 to 49 years was estimated by sub-group analysis of near-age groups. Colonoscopies performed for a positive result may find as the most clinically significant lesion: colorectal cancer [4.0%], advanced adenoma (including sessile serrated polyps greater than or equal to 1cm diameter) [20%] or non- advanced adenoma [31%]; or no colorectal neoplasia [45%]. These estimates are derived from a prospective cross-sectional screening study of 10,000 individuals at average risk for colorectal cancer who were screened with both Cologuard and colonoscopy. (Alexis Delatorre, N Engl J Med 2014;370(14):0055-1822.) Cologuard may produce a false negative or false positive result (no colorectal cancer or precancerous polyp present at colonoscopy follow up). A negative Cologuard test result does not guarantee the absence of CRC or advanced adenoma (pre-cancer). The current Cologuard screening interval is every 3 years. ([place] [employer] Society and U.S. Multi-Society Task Force). Cologuard performance data in a 10,000 patient pivotal study using colonoscopy as the reference method can be accessed at the following location: www.[employer]/results. Additional description of the Cologuard test process, warnings and precautions can be found at www.cologAccelard.com. Stool specimen (specimen) 09/01/2024 1:30 PM EST 09/02/2024 10:03 AM EST Marcio Jiménez MD LAB MOLECULAR DIAGNOSTICS ORD ERABLES Final Result [employer] (CLIA #:[id number]) [address] [place] [address], * Hemoglobin A1c (08/15/2024 3:28 PM EST) Hemoglobin A1c 5.2 <5.7 % 08/16/2024 10:24 AM EST [facility] Blood Venous blood specimen / Unknown Venipuncture / Unknown 08/15/2024 3:28 PM EST 08/15/2024 3:28 PM EST Narrative [facility] - 08/16/2024 10:24 AM EST HA1C Interpretive Data: Diagnosis of Diabetes: Diabetic > or = 6.5% Pre-diabetic 5.7 to 6.4% Non-diabetic < or = 5.6% Glycemic Targets for Type I and Type II Diabetics: Non- Adults <7.0% Adults <6.0% Children and Adolescents <7.5% Source: [place] [employer]. Standards of medical care in diabetes,2017. Diabetes Care.2017:40 (suppl 1):S1-S135. HbA1c assay performed by an ion-exchange chromatography method that is certified traceable to the DCCT. Marcio Jiménez MD LAB BLOOD ORDERABLES Final Re sult [facility] [address] [place] [address] * FIT EXTERNAL RESULT (09/10/2023) Narrative 09/10/2023 Ordered by an unspecified provider. us External Provider LAB REF LAB BLOOD AND FLUID OR D Final Result * COLONOSCOPY (06/02/2014) Anatomical Region Laterality Modality Endoscopy Narrative 06/02/2014 Ordered by an unspecified provider. us Historical Provider GI PROCEDURE ORDERABLES Janelle l Result * Hepatitis C Antibody (03/15/2014 3:51 PM EDT) Hepatitis C Antibody NEGATIVE Reference Range: Negative [facility] 03/15/2014 3:51 PM EDT 03/15/2014 4:35 PM EDT us Marcio Jiménez MD LAB BLOOD ORDERABLES Final Re sult [facility] from Last 3 Months or Most Recently Relevant to Health Maintenance Insurance [facility] Care Teams Title Coordinator Relationship Specialty Start Date End Date Marcio Jiménez MD [address] [place] [address] PCP - General 02/01/21 Romelia Avalos LPN VALUE-BASED TRANSFORMATION PROGRAM None Licensed Practical Nurse 09/04/25
--- NOTE | 2025-09-07 18:22 | PC.NURSE ---
Pt had a large episode of vomiting and states he feels better. Pt now able to talk in full sentences
--- NOTE | 2025-09-07 18:23 | PC.NURSE ---
Pt provided a carbonated drink by provider.
[2025-09-07] MEDS: ONDANSETRON 4MG/2ML VIAL 4 MG IV (18:28)
[2025-09-07 19:11] VITALS: BP 119/80; PULSE 71; RESP 18; TEMP 36.7; O2SAT 98
== END 2025-09-07 19:12 | disposition home or self-care (01) ==
PROVIDERS: Emergency Provider Student in an Organized Health Care Education/Training Program; PCP Internal Medicine
DX: T18.108A Unspecified foreign body in esophagus causing other injury, initial encounter (principal); R11.10 Vomiting, unspecified; W44.F3XA Food entering into or through a natural orifice, initial encounter
CPT/HCPCS: 96374; 99284; J2405